=== PATIENT | male | born 1995 ===

== ENCOUNTER 2017-12-03 11:04 | Emergency (ER) | payer MEDICAID ==
[2017-12-03 11:27] VITALS: TEMP 98.8
[2017-12-03 12:42] LABS: BASO % 1.2 % (0.0-2.0); EOS # 0.1 K/uL (0.0-0.7); EOS % 1.7 % (0.0-4.0); HEMOGLOBIN 13.6 g/dL (12.0-18.0); LYMPH # 1.6 K/uL (1.0-4.3); LYMPH % 42.1 % (20.0-40.0); MEAN CELL VOLUME 88.5 fL (80.0-94.0); MEAN CORPUSCULAR HEMOGLOBIN 31.6 pg (27.0-31.0); MEAN CORPUSCULAR HGB CONC 35.7 g/dL (33.0-37.0); MEAN PLATELET VOLUME 7.8 fL (7.2-11.7); MONO # 0.4 K/uL (0.0-0.8); NEUT # 1.6 K/uL (1.8-7.0); RBC 4.31 Mil/uL (4.40-5.90); RED CELL DISTRIBUTION WIDTH 12.8 % (11.5-14.5); WHITE BLOOD COUNT 3.7 K/uL (4.8-10.8)
[2017-12-03 13:05] LABS: ALB/GLOB RATIO 1.4 (1.0-2.1); ALBUMIN 4.3 g/dL (3.5-5.0); ALT/SGPT 25 U/L (21-72); AST/SGOT 34 U/L (17-59); BLOOD UREA NITROGEN 10 mg/dL (9-20); CALCIUM 9.2 mg/dl (8.6-10.4); GFR AFRICAN-AMERICAN > 60; GFR NON-AFRICAN AMERICAN > 60
[2017-12-03 13:18] LABS: BARBITURATES, UR NEGATIVE (NEGATIVE); BENZODIAZEPINES, UR NEGATIVE (NEGATIVE); OPIATES, UR NEGATIVE (NEGATIVE); PHENCYCLIDINE, UR NEGATIVE (NEGATIVE)
[2017-12-03 13:24] LABS: PH,URINE 6.5 (5.0-8.0); URINE BILIRUBIN NEGATIVE (NEGATIVE); URINE BLOOD NEGATIVE (NEGATIVE); URINE CLARITY Clear (Clear); URINE COLOR YELLOW (YELLOW); URINE GLUCOSE (UA) NEGATIVE (Normal); URINE PROTEIN NEGATIVE (NEGATIVE)
[2017-12-03 13:25] LABS: URINE LEUKOCYTE ESTERASE NEGATIVE Leu/uL (Negative); URINE NITRATE NEGATIVE (NEGATIVE); URINE UROBILINOGEN 0.2 mg/dL (0.2-1.0)
--- NOTE | 2017-12-03 13:49 | C.PDOC ---
History Of Present Illness 22-year-old male, presents to the emergency department with complaints of generalized weakness x2 years. Patient notes he has been experiencing gurgling stomach after he eats. States "I think something is wrong." Denies nausea/ vomiting, fevers, chest pain, shortness of breath or any other associated symptoms. No other complaints at this time. Time Seen by Provider: 12/03/17 11:53 Chief Complaint (Nursing): Weakness/Neurological Deficit Past Medical History Vital Signs: Last Vital Signs Temp 98.8 F 12/03/17 11:22 Pulse 78 12/03/17 14:24 Resp 16 12/03/17 14:24 BP 122/80 12/03/17 14:24 Pulse Ox 98 12/03/17 14:24 - Social History Hx Alcohol Use: Yes Hx Substance Use: Yes - Immunization History Hx Influenza Vaccination: No ED Course And Treatment - Laboratory Results Result Diagrams: 12/03/17 12:31 12/03/17 12:31 O2 Sat by Pulse Oximetry: 100 Disposition Counseled Patient/Family Regarding: Studies Performed, Diagnosis, Need For Followup - Disposition Referrals: [facility] [Outside] Disposition: HOME/ ROUTINE Disposition Time: 13:45 Condition: STABLE Additional Instructions: FOLLOW UP IN THE MEDICAL CLINIC IN 1-2 DAYS RETURN TO ER IF SYMPTOMS WORSEN Forms: [facility] (Uzbek), General Discharge Instructions Print Language: LEBANESE - Clinical Impression Clinical Impression: Malaise
[2017-12-03 14:25] VITALS: BP 122/80; PULSE 78; RESP 16
[2017-12-03 16:05] VITALS: O2SAT 100
== END 2017-12-03 14:24 | disposition home or self-care (01) ==
LOC: C.ER 11:04
DX: R53.81 Other malaise (principal)

== ENCOUNTER 2018-02-24 08:30 | Emergency (ER) | payer MEDICAID ==
[2018-02-24 08:50] VITALS: PULSE 61; RESP 20; TEMP 98.2; O2SAT 98
--- NOTE | 2018-02-24 09:46 | C.PDOC ---
History Of Present Illness 22 y/o male presents to the ER complaining of chest pain which has been present for the past 4 days. Patient states that he was opening a cart at work when a piece of plastic sprung loose and hit him in the right anterior chest wall. Patient reports it "knocked out his breath" but he did not think much of the pain. He did not take any medications for his pain. He continues to have pain with deep inspiration and he has some pain with movement of his right arm. Therefore, he decided to come to the ER. Patient denies having fever,chills, cough, and SOB. Time Seen by Provider: 02/24/18 08:58 Chief Complaint (Nursing): Chest Pain History Per: Patient History/Exam Limitations: no limitations Onset/Duration Of Symptoms: Days Current Symptoms Are (Timing): Still Present Severity: Moderate Past Medical History Reviewed: Historical Data, Nursing Documentation, Vital Signs Vital Signs: Last Vital Signs Temp 98.2 F 02/24/18 08:50 Pulse 61 02/24/18 08:50 Resp 20 02/24/18 08:50 BP 139/75 02/24/18 09:55 Pulse Ox 98 02/24/18 10:28 - Medical History PMH: No Chronic Diseases Surgical History: No Surg Hx Family History: States: No Known Family Hx - Social History Hx Alcohol Use: Yes Hx Substance Use: Yes - Immunization History Hx Influenza Vaccination: No Review Of Systems Except As Marked, All Systems Reviewed And Found Negative. Constitutional: Negative for: Fever, Chills Cardiovascular: Positive for: Chest Pain Respiratory: Negative for: Cough, Shortness of Breath Physical Exam - Physical Exam Appears: Non-toxic, No Acute Distress, Other (comfortable) Skin: Normal Color, Warm Head: Atraumatic, Normacephalic Eye(s): bilateral: Normal Inspection Nose: Normal Oral Mucosa: Moist Neck: Supple Chest: Symmetrical, Tenderness (tenderness over right pectoralis muscle), Other (no obvious bruising noted ) Cardiovascular: Rhythm Regular Respiratory: Normal Breath Sounds, No Rales, No Rhonchi, No Wheezing Gastrointestinal/Abdominal: Normal Exam, Soft, No Tenderness Neurological/Psych: Oriented x3, Normal Speech ED Course And Treatment ECG: Interpreted By Me ECG Rhythm: Sinus Rhythm ECG Interpretation: Normal O2 Sat by Pulse Oximetry: 98 (RA) Pulse Ox Interpretation: Normal - Radiology CXR: Interpreted by Me CXR Interpretation: Yes: No Acute Disease Reassessment Condition: Improved (after Motrin PO) Medical Decision Making Medical Decision Making: Plan: --CXR --EKG --Motrin PO Disposition Counseled Patient/Family Regarding: Studies Performed, Diagnosis, Need For Followup, Rx Given - Disposition Referrals: [facility] [Outside] Disposition: HOME/ ROUTINE Disposition Time: 09:45 Condition: IMPROVED Prescriptions: Naproxen [Naprosyn] 1 tab PO BID PRN #25 tab PRN Reason: Pain Instructions: Bruised Rib (DC) Forms: [facility] (French) - Clinical Impression Clinical Impression: Chest wall contusion - Scribe Statement The provider has reviewed the documentation as recorded by the Joés Miguel Kat Provider Attestation: All medical record entries made by the Raeganibe were at my direction and personally dictated by me. I have reviewed the chart and agree that the record accurately reflects my personal performance of the history, physical exam, medical decision making, and the department course for this patient. I have also personally directed, reviewed, and agree with the discharge instructions and disposition.
[2018-02-24 09:56] VITALS: BP 139/75
--- NOTE | 2018-02-24 10:47 | RAD ---
HISTORY: chest contusion COMPARISON: None TECHNIQUE: Chest PA and lateral FINDINGS: LUNGS: No focal consolidation is seen. PLEURA: No pleural effusion is identified. CARDIOVASCULAR: Heart size is within normal limits. OSSEOUS STRUCTURES: Visualized osseous structures are unremarkable. VISUALIZED UPPER ABDOMEN: Unremarkable. OTHER FINDINGS: None. IMPRESSION: No acute cardiopulmonary process seen.
--- NOTE | 2018-02-26 | CARD ---
APPROVED REPORT EKG Measurement Heart [id number] <Conclusion> Normal sinus rhythm Normal ECG
== END 2018-02-24 09:56 | disposition home or self-care (01) ==
LOC: C.ER 08:30
DX: S20.219A Contusion of unspecified front wall of thorax, initial encounter (principal); W22.8XXA Striking against or struck by other objects, initial encounter; Y99.0 Civilian activity done for income or pay

== ENCOUNTER 2018-03-26 07:56 | Emergency (ER) | payer MEDICAID ==
[2018-03-26 08:01] VITALS: BP 132/83; PULSE 93; RESP 20; TEMP 98.2; O2SAT 98
--- NOTE | 2018-03-26 08:26 | C.PDOC ---
History Of Present Illness 22 year old male presents to the ED complaining of productive cough for 1 week, associated with green sputum. States he has been taking Theraflu without relief. Patient denies any fever, SOB, chest pain, headache, neck pain or rash. Time Seen by Provider: 03/26/18 07:59 Chief Complaint (Nursing): Cough, Cold, Congestion History Per: Patient History/Exam Limitations: no limitations Onset/Duration Of Symptoms: Days Current Symptoms Are (Timing): Still Present Associated Symptoms: Cough, Sputum Past Medical History Reviewed: Historical Data, Nursing Documentation, Vital Signs Vital Signs: Last Vital Signs Temp 98.2 F 03/26/18 07:58 Pulse 93 H 03/26/18 07:58 Resp 20 03/26/18 07:58 BP 132/83 03/26/18 07:58 Pulse Ox 98 03/26/18 08:56 - Medical History PMH: No Chronic Diseases Surgical History: No Surg Hx Family History: States: No Known Family Hx - Social History Hx Tobacco Use: Yes Hx Alcohol Use: Yes Hx Substance Use: Yes - Immunization History Hx Influenza Vaccination: No Hx Pneumococcal Vaccination: No Review Of Systems Except As Marked, All Systems Reviewed And Found Negative. Constitutional: Negative for: Fever, Chills Cardiovascular: Negative for: Chest Pain Respiratory: Positive for: Cough, Sputum. Negative for: Shortness of Breath, Hemoptysis Neurological: Negative for: Headache Physical Exam - Physical Exam Appears: Well, Non-toxic, No Acute Distress, Other (occassional cough noted) Skin: Normal Color, Warm, Dry Head: Atraumatic, Normacephalic Eye(s): bilateral: Normal Inspection, EOMI Ear(s): Bilateral: Normal Nose: Normal Oral Mucosa: Moist Throat: Normal, No Erythema, No Exudate Neck: Normal ROM, Supple Chest: Symmetrical Cardiovascular: Rhythm Regular Respiratory: Normal Breath Sounds, No Accessory Muscle Use, No Rales, No Rhonchi , No Wheezing, Other (speaking in full sentences) Gastrointestinal/Abdominal: Soft, No Tenderness, No Guarding Extremity: Normal ROM Extremity: Bilateral: Atraumatic, Normal Color And Temperature, Normal ROM Neurological/Psych: Oriented x3, Normal Speech, Other (No focal deficits) ED Course And Treatment O2 Sat by Pulse Oximetry: 98 (RA) Pulse Ox Interpretation: Normal - Radiology CXR: Interpreted by Me, Viewed By Me CXR Interpretation: Yes: No Acute Disease Progress Note: Chest X-Ray ordered and reviewed. Patient informed of negative x- ray results. On reassessment, patient is resting comfortably with no wheezing or chest pain. Oxygen saturation is 98% on room air. Afebrile. Patient was advised to follow up with physician/clinic in 1-2 days and return to ED if symptoms worsen or persist. Reevaluation Time: 08:24 Reassessment Condition: Improved Disposition Counseled Patient/Family Regarding: Studies Performed, Diagnosis, Need For Followup, Rx Given, Smoking Cessation - Disposition Disposition: HOME/ ROUTINE Disposition Time: 08:24 Condition: STABLE Additional Instructions: Madison de fumar. Vaya a hernandez mdico o la clnica en 2-5 gaspar sin falta, para mas evaluacin. Vicco los medicamentos iliana indicado. Volver a la shanna de emergencia en cualquier momento si los sntomas persisten o empeoran. Prescriptions: Albuterol HFA [Ventolin HFA 90 mcg/actuation (8 g)] 2 puff IH [id number] PRN #1 puff PRN Reason: Shortness Of Breath Azithromycin [Zithromax] 250 mg PO DAILY #6 tab Guaifen/Dextromethorphan/PE [Mucinex Fast-Max Congest-Cough] 1 each PO Q6 #20 tablet Instructions: Acute Bronchitis, Adult (DC) Forms: [facility] (Georgian), Work Excuse Print Language: CZECH - POA Present On Arrival: None - Clinical Impression Clinical Impression: Bronchitis - PA / CERTIFIED PERSONAL TRAINER / Resident Statement MD/DO has reviewed & agrees with the documentation as recorded. - Scribe Statement The provider has reviewed the documentation as recorded by the Scribe (Charis Medina) All medical record entries made by the Scribe were at my direction and personally dictated by me. I have reviewed the chart and agree that the record accurately reflects my personal performance of the history, physical exam, medical decision making, and the department course for this patient. I have also personally directed, reviewed, and agree with the discharge instructions and disposition.
--- NOTE | 2018-03-26 09:21 | RAD ---
HISTORY: sob COMPARISON: Chest x-ray 02/24/2018 TECHNIQUE: Chest PA and lateral FINDINGS: LUNGS: No focal consolidation is seen. PLEURA: No pleural effusion is identified. CARDIOVASCULAR: Heart size is within normal limits. OSSEOUS STRUCTURES: Visualized osseous structures are unremarkable. VISUALIZED UPPER ABDOMEN: Unremarkable. OTHER FINDINGS: None. IMPRESSION: No acute cardiopulmonary process seen.
== END 2018-03-26 09:01 | disposition home or self-care (01) ==
LOC: C.ER 07:56
DX: J40 Bronchitis, not specified as acute or chronic (principal); Z72.0 Tobacco use

== ENCOUNTER 2018-03-30 09:12 | Emergency (ER) | payer MEDICAID ==
[2018-03-30 09:23] VITALS: BP 142/76; PULSE 79; RESP 16; TEMP 98.2; O2SAT 99
--- NOTE | 2018-03-30 09:49 | C.PDOC ---
History Of Present Illness 22-YEAR-OLD MALE, PRESENTS TO THE EMERGENCY DEPARTMENT COMPLAINING OF PERSISTENT COUGH ONGONG SINCE 03/26. PT SEEN HERE FOR SAME COMPLAINT, GIVEN Z- MARYANN AND MUCINEX, OVERALL BETTER, BUT COUGH PERSISTS. DENIES FEVER, ASTHMA. PT HAS HX OF SMOKING. FINISHED Z MARYANN YESTERDAY EXAM NO ACTIVE COUGH AT THIS TIME REMAINDER NEG MDM NO INDICATION FOR ADDITIONAL ANTIBIOTICS Time Seen by Provider: 03/30/18 09:33 Chief Complaint (Nursing): Cough, Cold, Congestion History Per: Patient History/Exam Limitations: no limitations Onset/Duration Of Symptoms: Days Current Symptoms Are (Timing): Still Present Past Medical History Reviewed: Historical Data, Nursing Documentation, Vital Signs Vital Signs: Last Vital Signs Temp 98.2 F 03/30/18 09:20 Pulse 79 03/30/18 09:20 Resp 16 03/30/18 09:20 BP 142/76 03/30/18 09:20 Pulse Ox 99 03/30/18 09:49 Family History: States: No Known Family Hx - Social History Hx Tobacco Use: Yes Hx Alcohol Use: Yes Hx Substance Use: Yes - Immunization History Hx Influenza Vaccination: No Hx Pneumococcal Vaccination: No Review Of Systems Constitutional: Negative for: Fever, Chills Respiratory: Positive for: Cough. Negative for: Shortness of Breath Gastrointestinal: Negative for: Vomiting Musculoskeletal: Negative for: Back Pain Skin: Negative for: Rash Neurological: Negative for: Weakness, Numbness, Headache, Dizziness Physical Exam - Physical Exam Appears: Well, Non-toxic, No Acute Distress Skin: Normal Color, Warm, Dry, No Rash Head: Atraumatic, Normacephalic Eye(s): bilateral: Normal Inspection, PERRL Nose: Normal Oral Mucosa: Moist Lips: Normal Appearing Neck: Normal ROM Chest: Symmetrical Cardiovascular: Rhythm Regular, No Murmur Respiratory: Normal Breath Sounds, No Accessory Muscle Use, No Rales, No Rhonchi , No Wheezing Gastrointestinal/Abdominal: Soft, No Tenderness Extremity: Normal ROM, No Deformity, No Swelling Neurological/Psych: Oriented x3, Normal Speech ED Course And Treatment O2 Sat by Pulse Oximetry: 99 (RA) Pulse Ox Interpretation: Normal Medical Decision Making Medical Decision Making: NO INDICATION FOR ADDITIONAL ANTIBIOTICS Disposition Counseled Patient/Family Regarding: Diagnosis, Need For Followup, Rx Given - Disposition [facility] [Outside] Disposition: HOME/ ROUTINE Disposition Time: 09:48 Condition: GOOD Prescriptions: Benzonatate [Tessalon Perles] 200 mg PO TID PRN #15 sgl PRN Reason: Cough Instructions: Cough, Adult (DC) Forms: [facility] (Azeri), General Discharge Instructions - Clinical Impression Clinical Impression: Cough - Scribe Statement The provider has reviewed the documentation as recorded by the Scribe (Charline Carson) All medical record entries made by the Scribe were at my direction and personally dictated by me. I have reviewed the chart and agree that the record accurately reflects my personal performance of the history, physical exam, medical decision making, and the department course for this patient. I have also personally directed, reviewed, and agree with the discharge instructions and disposition.
== END 2018-03-30 09:55 | disposition home or self-care (01) ==
LOC: C.ER 09:12
DX: R05 Cough (principal)